=== PATIENT | male | born 1960 ===

== ENCOUNTER 2018-02-11 13:54 | Inpatient (IN) | payer OTHER ==
[~2018-02-11] VITALS: Ht 182.9 cm; Wt 115.2 kg
[2018-02-11] MEDS ORDERED: Z GUARD REMEDY PASTE 57 GM TUBE TOP PRN (14:30)
[2018-02-11] MEDS ORDERED: SIMV10TA6 PO (14:34)
[2018-02-11] MEDS ORDERED: OXYC20OR PO (14:34)
[2018-02-11] MEDS ORDERED: METF-495 PO (14:34)
[2018-02-11] MEDS ORDERED: FAMO20TA8 PO (14:34)
[2018-02-11] MEDS ORDERED: DOCU-141 PO (14:34)
[2018-02-11] MEDS ORDERED: SITA100T PO (14:34)
[2018-02-11] MEDS ORDERED: BISA10SU8 RC (14:34)
[2018-02-11] MEDS ORDERED: OXYC-133 PO (14:34)
[2018-02-11] MEDS ORDERED: ASPI-612 PO (14:34)
[2018-02-11] MEDS ORDERED: PIOG45TA5 PO (14:34)
[2018-02-11] MEDS ORDERED: LISI10TA5 PO (14:34)
--- NOTE | 2018-02-11 14:38 | NUR ---
Admitted this 57 y/o male from [facility] with diagnosis of S/P Right Knee Arthroplasty by Dr. Smith on 02/09/18 transferred via gurney by [employer] transportation. Patient is alert, oriented x 4, not in any form of acute distress. Routine admission care provided. Oriented to room, staff and use of devices. Call light placed within reach. Dr. Mena made aware of admission. Dr. Manuel Lux notified of admission and need for medication reconciliation and said OK. Addendum: 02/11/18 at 1952 by CHELA VILLARREAL RN RN correction: diagnosis of Left Knee Arthroplasty
[2018-02-11] MEDS ORDERED: OXYCODONE/APAP 5-325 MG TABLET PO PRN (16:15)
[2018-02-11] MEDS ORDERED: BISACODYL 10 MG SUPP.RECT RC PRN (16:15)
[2018-02-11] MEDS ORDERED: OXYCODONE HCL 20 MG/1 ML LIQUID UDC PO PRN (16:15)
[2018-02-11] MEDS ORDERED: OXYCODONE HCL 5 MG TABLET PO PRN (16:45)
[2018-02-11] MEDS: DOCUSATE SODIUM 100 MG CAPSULE PO SCH (17:27)
[2018-02-11] MEDS: ASPIRIN 325 MG TABLET PO SCH (17:27)
[2018-02-11] MEDS: METFORMIN XR 500 MG TAB.SR.24H PO SCH (17:28)
--- NOTE | 2018-02-11 18:50 | NUR ---
Notified Dr. Mena regarding patient's pain medication not working and stated he will review his medications and make some changes.
--- NOTE | 2018-02-11 19:25 | NUR ---
Pt awake and laying in Semi paredes's position in bed . A & O x 4 , cooperative . Pt is c/o pain in left knee , a 4 / 10 , aching . Pt given pain medication . Pt has a blood glucose of 175 , was given 3 units of Humulin . Pt has a Funes cath. with urine output , yellow and clear . Bed in low position , bed alarm on , side rails up x 2 , wheels locked , and call light near pt in bed . VSS
[2018-02-11 19:28] VITALS: BP 118/73
[2018-02-11] MEDS ORDERED: DEXTROSE 50% 50 ML DISP.SYRIN IV PRN (19:45)
[2018-02-11 20:00] VITALS: BP 123/80
[2018-02-11] MEDS: SIMVASTATIN 10 MG TABLET PO SCH (21:04)
[2018-02-11] MEDS: OXYCODONE HCL 20 MG TAB.SR.12H PO SCH (21:04)
[2018-02-11] MEDS: BLOOD SUGAR DIAGNOSTIC 1 EACH STRIP VI SCH (21:12)
[2018-02-11] MEDS: INSULIN REGULAR, HUMAN 300 UNIT/3 ML VIAL SQ PRN (21:16)
[2018-02-11] MEDS: OXYCODONE/APAP 5-325 MG TABLET PO PRN (22:13)
[2018-02-12] MEDS: OXYCODONE/APAP 5-325 MG TABLET PO PRN ×4 (04:18→22:34)
[2018-02-12 05:08] VITALS: BP 141/77
[2018-02-12] MEDS: OXYCODONE HCL 20 MG TAB.SR.12H PO SCH ×3 (05:33→23:50)
[2018-02-12] MEDS: BLOOD SUGAR DIAGNOSTIC 1 EACH STRIP VI SCH ×4 (06:37→21:00)
--- NOTE | 2018-02-12 06:52 | NUR ---
Pt slept some during the shift . Pt stated that the pain medications were not working . In the morning , pt had a pain of 6 out of 10 , in left knee , and had 2 tabs of Percoset and his scheduled Q 8 hours Oxycontin 20 mg and his pain decreased to 5 / 10 . Removed pt's Funes catheter . VSS , pt A & O x4 , cooperative .
[2018-02-12 07:02] LABS: BASOPHILS % (AUTO) 0.7 % (0.0-2.0); EOSINOPHILS # (AUTO) 0.3 K/uL (0.0-0.7); EOSINOPHILS % (AUTO) 5.2 % (0.0-7.0); HEMATOCRIT 35.2 % (36.7-47.1); LYMPHOCYTES # (AUTO) 0.7 K/uL (20.0-40.0); LYMPHOCYTES % (AUTO) 12.2 % (20.5-51.5); MEAN CORPUSCULAR HEMOGLOBIN 29.4 uug (23.8-33.4); MEAN CORPUSCULAR HGB CONC 34 g/dL (32.5-36.3); MEAN CORPUSCULAR VOLUME 86.4 fL (73.0-96.2); MONOCYTES # (AUTO) 0.7 K/uL (2.0-10.0); MONOCYTES % (AUTO) 12.1 % (0.0-11.0); NEUTROPHILS # (AUTO) 3.9 K/uL (1.8-8.9); NEUTROPHILS % (AUTO) 69.8 % (38.5-71.5); PLATELET COUNT (AUTO) 207 K/uL (152-348); RED BLOOD CELL COUNT(AUTO) 4.08 MIL/uL (4.06-5.63); WHITE BLOOD COUNT (AUTO) 5.7 K/uL (3.6-10.2)
[2018-02-12 07:16] LABS: CREATININE 0.9 mg/dL (0.6-1.3); MAGNESIUM 1.9 mg/dL (1.8-2.4); PHOSPHOROUS 2.3 mg/dL (2.5-4.9); POTASSIUM 4.2 mmol/L (3.5-5.1)
[2018-02-12] MEDS ORDERED: SITAGLIPTIN PHOSPHATE 50 MG TABLET PO SCH (09:00)
[2018-02-12] MEDS: LISINOPRIL 10 MG TABLET PO SCH (09:00)
[2018-02-12] MEDS: DOCUSATE SODIUM 100 MG CAPSULE PO SCH ×2 (09:37→17:24)
[2018-02-12] MEDS: LINAGLIPTIN 5 MG TABLET PO SCH (09:38)
[2018-02-12] MEDS: FAMOTIDINE 20 MG TABLET PO SCH (09:38)
[2018-02-12] MEDS: ASPIRIN 325 MG TABLET PO SCH ×2 (09:38→16:31)
[2018-02-12] MEDS: PIOGLITAZONE HCL 15 MG TABLET PO SCH (09:38)
[2018-02-12] MEDS: INSULIN REGULAR, HUMAN 300 UNIT/3 ML VIAL SQ PRN ×3 (09:42→21:02)
[2018-02-12 15:27] VITALS: BP 119/83
[2018-02-12] MEDS ORDERED: NEUTRA PHOS PACKET PO ONE (15:30)
[2018-02-12] MEDS: METFORMIN XR 500 MG TAB.SR.24H PO SCH (17:24)
--- NOTE | 2018-02-12 19:45 | NUR ---
Pt is awake and laying in low fowlers position in bed . Pt was upset with new pain schedule . I called Dr Mena to see if pt could get pain medication right away and pt received 20 mg Oxycontin once and then was due to start it Q 6 hrs at midnight . VSS
[2018-02-12 20:24] VITALS: BP 144/76
[2018-02-12] MEDS: SIMVASTATIN 10 MG TABLET PO SCH (20:56)
[2018-02-12] MEDS ORDERED: OXYCODONE HCL 5 MG TABLET PO ONE (21:00)
[2018-02-13 05:00] VITALS: BP 151/86
--- NOTE | 2018-02-13 05:38 | NUR ---
Pt slept well throughout the shift . The new pain schedule seemed to help the pt rest and be more comfortable . No signs of distress . VSS .
[2018-02-13] MEDS: OXYCODONE HCL 20 MG TAB.SR.12H PO SCH ×3 (06:06→17:20)
[2018-02-13] MEDS: BLOOD SUGAR DIAGNOSTIC 1 EACH STRIP VI SCH ×4 (06:39→22:02)
[2018-02-13] MEDS: OXYCODONE/APAP 5-325 MG TABLET PO PRN ×3 (06:54→20:46)
[2018-02-13] MEDS: INSULIN REGULAR, HUMAN 300 UNIT/3 ML VIAL SQ PRN ×3 (08:40→17:22)
[2018-02-13] MEDS: PIOGLITAZONE HCL 15 MG TABLET PO SCH (08:43)
[2018-02-13] MEDS: LINAGLIPTIN 5 MG TABLET PO SCH (08:43)
[2018-02-13] MEDS: ASPIRIN 325 MG TABLET PO SCH ×2 (08:43→17:20)
[2018-02-13] MEDS: DOCUSATE SODIUM 100 MG CAPSULE PO SCH ×2 (08:43→17:49)
[2018-02-13] MEDS: FAMOTIDINE 20 MG TABLET PO SCH (08:43)
[2018-02-13 08:55] VITALS: BP 136/76
[2018-02-13] MEDS: LISINOPRIL 10 MG TABLET PO SCH (08:55)
--- NOTE | 2018-02-13 12:45 | NUR ---
Received patient, asleep in bed. Non-labored breathing.
--- NOTE | 2018-02-13 13:43 | NUR ---
INTERDISCIPLINARY TEAM CONFERENCE
--- NOTE | 2018-02-13 16:00 | NUR ---
Dressing changed done. Left knee surgical wound still with nic, no discharges or redness noted.
[2018-02-13 16:09] VITALS: BP 144/84
[2018-02-13] MEDS: METFORMIN XR 500 MG TAB.SR.24H PO SCH (17:20)
[2018-02-13 20:35] VITALS: BP 138/81
[2018-02-13] MEDS: SIMVASTATIN 10 MG TABLET PO SCH (20:40)
--- NOTE | 2018-02-13 22:02 | NUR ---
Pt. accucheck result is = 146 , pt. refused his s/s coverage for Regular insulin. No coverage given to the pt. kevin.
[2018-02-14] MEDS: OXYCODONE HCL 20 MG TAB.SR.12H PO SCH ×3 (00:23→12:14)
--- NOTE | 2018-02-14 01:15 | NUR ---
Pt. verbalized to the Primary RN caregivers that pain is not being controlled by PO. meds pain reliever. Pt. also verbalized that he already talked to the Doctor about his need for IV pain reliever but its only po pain reliever thats ordered for him in the Rehab. floor. Pt. verbalized that he already talked about this problem from the other shifts. Pt. agreed that I will call the Doctor in the morning since its not the right time to wake the Doctor. Pt. just received his pain reliever Oxycontin-Oxycodone 20 mg. an 30-40 minutes ago. Pt. is to receive another pain reliever which is the Percocet in 1 1/2 hour from now. Pt. just verbalized that his PO. pain reliever is not really helping him fully sleep and be comfortable. Pt. verbalized that he doesn't want me to call the Doctor right now and pt. decided with the Nurse to call the Doctor tomorrow with regards to his pain and comfort or pain control management issue. Primary RN Hernandez Rubio addressed it to the athletic equipment manager and Nursing Folding Rules Printing Machine Operator. athletic equipment manager and Nursing Folding Rules Printing Machine Operator made aware. Nursing Folding Rules Printing Machine Operator instructed/informed Primary Nurse to call the Doctor in the morning around [phone] Am.
[2018-02-14] MEDS: OXYCODONE/APAP 5-325 MG TABLET PO PRN ×2 (02:39→09:43)
--- NOTE | 2018-02-14 04:30 | NUR ---
Pt. verbalized that his Right lower extremity is feeling numb and in pain from the prolong position. Compression stocking was removed because the Right leg- Right Lower extremity has red skin color and pt. feels that the compression stocking feels so tight to his Right leg- Right Lower extremity. Compression stocking was removed and the whole right leg was massage for a few minutes. The pt. feels relieved and help him to reduce his feeling of tightness and numbness there. Tightness and numbness feeling decreased now and pt. feels comfortable. Pt. made aware that Nurses will call the Doctor in charge for this matter in the morning. Pt. denies pain @ the Left Knee -LLE @ this time because he just received Percocet -Oxycodone @ around 0238 Am when it due @ that time. Pt. did not talk of pain @ the Left Knee -Knee replacement site. Pt. still desire to have IV pain reliever be ordered for him for his Left Knee replacement when it hurts or when its painful again. Pt. doesnt like PO> pain relievers only. He wants to have breakthrough IV pain reliever meds. for his Left Knee pain as RPN too. Pt. informend that the Doctor will be called early Am today. Pt. verbalized understanding.
[2018-02-14 05:00] VITALS: BP 144/78
--- NOTE | 2018-02-14 05:36 | NUR ---
SPOKE TO MARLY LEWIS NP AND NOTIFY THAT PATIENT PAIN ARE NOT RELIEVE WITH CURRENT PAIN MEDS, WITH NO NEW ORDER AT THIS TIME. WILL ENDORSED IN AM.
[2018-02-14] MEDS: BLOOD SUGAR DIAGNOSTIC 1 EACH STRIP VI SCH ×4 (07:17→20:18)
[2018-02-14 08:00] VITALS: BP 149/74
--- NOTE | 2018-02-14 08:00 | NUR ---
RECEIVED A 57 Y/O MALE PT A CASE OF POST LT KNEE REPLACEMENT, PT IS ALERT OX4, BREATHING SPONTANEOUSLY. HAS A LT KNEE INCISION , URINATING USING THE URINAL / OOB TO RESTROOM. ALL SAFETY MEASURES TAKEN , PATIENT HAS ON THE CLOCK PAIN MEDICATION TO CONTINUE TO MONITOR. -
[2018-02-14] MEDS: DOCUSATE SODIUM 100 MG CAPSULE PO SCH ×2 (08:43→17:10)
[2018-02-14] MEDS: LISINOPRIL 10 MG TABLET PO SCH (08:43)
[2018-02-14] MEDS: ASPIRIN 325 MG TABLET PO SCH ×2 (08:43→17:10)
[2018-02-14] MEDS: LINAGLIPTIN 5 MG TABLET PO SCH (08:43)
[2018-02-14] MEDS: FAMOTIDINE 20 MG TABLET PO SCH (08:43)
[2018-02-14] MEDS: PIOGLITAZONE HCL 15 MG TABLET PO SCH (09:42)
[2018-02-14] MEDS: INSULIN REGULAR, HUMAN 300 UNIT/3 ML VIAL SQ PRN ×3 (12:01→20:52)
[2018-02-14] MEDS ORDERED: OXYCODONE HCL 20 MG TAB.SR.12H PO SCH (14:00)
[2018-02-14] MEDS: OXYCODONE HCL 40 MG TAB.SR.12H PO SCH ×2 (14:33→22:30)
[2018-02-14 15:53] VITALS: BP 130/77
[2018-02-14] MEDS: HYDROMORPHONE HCL 2 MG TABLET PO PRN ×2 (17:30→20:38)
[2018-02-14] MEDS: METFORMIN XR 500 MG TAB.SR.24H PO SCH (18:24)
--- NOTE | 2018-02-14 19:30 | NUR ---
PT ALERT AND ORIENTED IN BED. NO DISTRESS NOTED. COMPLIANT WITH NURSING CARE. SAFETY MAINTAINED. CALL LIGHT WITHIN REACH. BED ALARM ON.
[2018-02-14 19:41] VITALS: BP 121/74
[2018-02-14] MEDS: SIMVASTATIN 10 MG TABLET PO SCH (20:16)
[2018-02-15 05:30] VITALS: BP 136/80
[2018-02-15] MEDS: OXYCODONE HCL 40 MG TAB.SR.12H PO SCH ×3 (06:14→22:11)
[2018-02-15] MEDS: BLOOD SUGAR DIAGNOSTIC 1 EACH STRIP VI SCH ×4 (06:40→21:00)
--- NOTE | 2018-02-15 06:41 | NUR ---
PT ALERT AND ORIENTED IN BED. NO DISTRESS NOTED. BS 137. PAIN MEDICATION THROUGHOUT THE NIGHT NEEDED FOR PAIN. CLEAN AND DRY. SAFETY MAINTAINED. CALL LIGHT WITHIN REACH. BED ALARM ON.
[2018-02-15 08:00] VITALS: BP 142/86
[2018-02-15] MEDS: HYDROMORPHONE HCL 2 MG TABLET PO PRN ×4 (08:11→22:04)
[2018-02-15] MEDS: LINAGLIPTIN 5 MG TABLET PO SCH (08:13)
[2018-02-15] MEDS: ASPIRIN 325 MG TABLET PO SCH ×2 (08:13→17:09)
[2018-02-15] MEDS: PIOGLITAZONE HCL 15 MG TABLET PO SCH (08:13)
[2018-02-15] MEDS: FAMOTIDINE 20 MG TABLET PO SCH (08:13)
[2018-02-15] MEDS: LISINOPRIL 10 MG TABLET PO SCH (08:14)
[2018-02-15] MEDS: DOCUSATE SODIUM 100 MG CAPSULE PO SCH ×2 (08:14→17:09)
[2018-02-15] MEDS: INSULIN REGULAR, HUMAN 300 UNIT/3 ML VIAL SQ PRN ×3 (08:21→17:11)
--- NOTE | 2018-02-15 14:00 | NUR ---
ENDORSED PATIENT TO CHARGE NURSE
--- NOTE | 2018-02-15 14:30 | NUR ---
Patient out of bed ambulating with physical therapist, no complain at this time, no distress noted.
[2018-02-15] MEDS ORDERED: BISACODYL 10 MG SUPP.RECT RC PRN (16:00)
--- NOTE | 2018-02-15 16:00 | NUR ---
Received an order from Alexandre Jules NP to change Bisacodyl order to 10 mg suppository per rectum PRN daily.
[2018-02-15 16:05] VITALS: BP 140/75
[2018-02-15] MEDS: METFORMIN XR 500 MG TAB.SR.24H PO SCH (17:10)
--- NOTE | 2018-02-15 20:15 | NUR ---
A/o x4 Lying in bed watching Tv right knee dharmesh wrapped and nic intact. Siderails up Call light within reach.
[2018-02-15 20:47] VITALS: BP 155/84
[2018-02-15] MEDS: SIMVASTATIN 10 MG TABLET PO SCH (21:55)
--- NOTE | 2018-02-15 22:00 | NUR ---
C/o 9-10 Right Knee pain given Dil 8 mg po. Blood Sugar 103 no coverage given. Siderails up Call light within reach.
--- NOTE | 2018-02-16 02:00 | NUR ---
C/o 9-10 L Knee pain given Dil 8 mg po . Siderails up call light within reach.
[2018-02-16] MEDS: HYDROMORPHONE HCL 2 MG TABLET PO PRN ×5 (02:06→21:59)
[2018-02-16 05:00] VITALS: BP 136/80
[2018-02-16] MEDS: OXYCODONE HCL 40 MG TAB.SR.12H PO SCH ×3 (06:30→21:04)
--- NOTE | 2018-02-16 07:07 | NUR ---
Lying in bed watching tv given am pain meds and blood sugar 127 no coverage given siderails up call light within reach.
[2018-02-16] MEDS: DOCUSATE SODIUM 100 MG CAPSULE PO SCH ×2 (08:16→17:11)
[2018-02-16] MEDS: ASPIRIN 325 MG TABLET PO SCH ×2 (08:16→17:11)
[2018-02-16] MEDS: FAMOTIDINE 20 MG TABLET PO SCH (08:16)
[2018-02-16] MEDS: LINAGLIPTIN 5 MG TABLET PO SCH (08:16)
[2018-02-16] MEDS: PIOGLITAZONE HCL 15 MG TABLET PO SCH (08:17)
[2018-02-16] MEDS: LISINOPRIL 10 MG TABLET PO SCH (08:18)
[2018-02-16] MEDS: BLOOD SUGAR DIAGNOSTIC 1 EACH STRIP VI SCH ×3 (11:40→21:08)
[2018-02-16] MEDS: METFORMIN XR 500 MG TAB.SR.24H PO SCH (17:14)
[2018-02-16] MEDS: SIMVASTATIN 10 MG TABLET PO SCH (21:04)
[2018-02-16] MEDS: INSULIN REGULAR, HUMAN 300 UNIT/3 ML VIAL SQ PRN (21:12)
[2018-02-16 22:02] VITALS: BP 126/68
[2018-02-17] MEDS: HYDROMORPHONE HCL 2 MG TABLET PO PRN ×5 (03:10→21:09)
[2018-02-17 04:21] VITALS: BP 141/80
[2018-02-17] MEDS: OXYCODONE HCL 40 MG TAB.SR.12H PO SCH ×3 (05:45→22:51)
[2018-02-17] MEDS: BLOOD SUGAR DIAGNOSTIC 1 EACH STRIP VI SCH ×4 (06:42→21:12)
--- NOTE | 2018-02-17 06:51 | NUR ---
PT IN BED RESTING, IN NO ACUTE SIGNS OF DISTRESS. ON PAIN MANAGEMENT FOR LEFT KNEE PAIN. BLOOD GLUCOSE CHECKED IN AM, 161. WILL ENDORSE TO AM NURSE. SAFETY MEASURES RENDERED.
[2018-02-17] MEDS: LINAGLIPTIN 5 MG TABLET PO SCH (08:14)
[2018-02-17] MEDS: ASPIRIN 325 MG TABLET PO SCH ×2 (08:14→17:07)
[2018-02-17] MEDS: PIOGLITAZONE HCL 15 MG TABLET PO SCH (08:15)
[2018-02-17] MEDS: FAMOTIDINE 20 MG TABLET PO SCH (08:15)
[2018-02-17] MEDS: LISINOPRIL 10 MG TABLET PO SCH (08:15)
[2018-02-17] MEDS: DOCUSATE SODIUM 100 MG CAPSULE PO SCH ×2 (08:15→17:07)
[2018-02-17 15:53] VITALS: BP 124/63
[2018-02-17] MEDS: METFORMIN XR 500 MG TAB.SR.24H PO SCH (17:08)
--- NOTE | 2018-02-17 17:31 | NUR ---
REFUSED INSULIN SLIDING SCALE COVERAGE FOR TODAY. TOOK HIS ORAL HYPOGLYCEMICS ORDERED. NO SIGN OF HYPER/HYPOGLYCEMIA NOTED
--- NOTE | 2018-02-17 19:50 | NUR ---
Received pt in bed, AAO x 4 watching television with family at bedside. No acute distress noted. Verbally responsive and able to make needs known. Denies pain or discomfort at this time. All safety measures and fall precautions maintained. Call light and all personal belongings within reach. Will continue to monitor.
[2018-02-17 20:23] VITALS: BP 111/58
--- NOTE | 2018-02-17 21:00 | NUR ---
Blood sugar noted to be 165. Pt refusing sliding scale insulin. Offered x 3. Explained risks and benefits. Pt verbalized understanding. Safety maintained. Call light within reach. Will continue to monitor.
[2018-02-17] MEDS: SIMVASTATIN 10 MG TABLET PO SCH (21:09)
[2018-02-18] MEDS: HYDROMORPHONE HCL 2 MG TABLET PO PRN ×5 (03:03→20:39)
[2018-02-18 05:25] VITALS: BP 121/68
[2018-02-18] MEDS: OXYCODONE HCL 40 MG TAB.SR.12H PO SCH ×3 (05:54→22:17)
[2018-02-18] MEDS: BLOOD SUGAR DIAGNOSTIC 1 EACH STRIP VI SCH ×4 (06:30→20:43)
[2018-02-18 08:00] VITALS: BP 139/84
--- NOTE | 2018-02-18 08:00 | NUR ---
Received patient awake, alert x4. With pain over left knee rated as 9/10. Not in any form of distress. Refused insulin sliding scale at this time. Discussed risks and benefits but patient still refused.
[2018-02-18] MEDS: LISINOPRIL 10 MG TABLET PO SCH (08:42)
[2018-02-18] MEDS: LINAGLIPTIN 5 MG TABLET PO SCH (08:42)
[2018-02-18] MEDS: DOCUSATE SODIUM 100 MG CAPSULE PO SCH ×2 (08:42→17:12)
[2018-02-18] MEDS: FAMOTIDINE 20 MG TABLET PO SCH (08:42)
[2018-02-18] MEDS: ASPIRIN 325 MG TABLET PO SCH ×2 (08:42→17:12)
[2018-02-18] MEDS: PIOGLITAZONE HCL 15 MG TABLET PO SCH (08:44)
[2018-02-18] MEDS: INSULIN REGULAR, HUMAN 300 UNIT/3 ML VIAL SQ PRN ×3 (11:59→20:46)
[2018-02-18 15:50] VITALS: BP 125/80
[2018-02-18] MEDS: METFORMIN XR 500 MG TAB.SR.24H PO SCH (17:12)
--- NOTE | 2018-02-18 17:35 | NUR ---
Tolerated therapy well. Pain medications given as ordered. On CMP tolerating well up to 75 degrees. Showered during therapy. Dressing changed per soiling. Wound healing well, still with nic, no discharges noted.
--- NOTE | 2018-02-18 19:30 | NUR ---
Received patient awake, watching TV at this time. Presented a tolerable pain on left knee. Patient aware when he's due for the next pain meds. Encouraged deep breathing exercises and relaxation technique to relieve pain/discomforts. Will monitor.
[2018-02-18 20:38] VITALS: BP 121/65
[2018-02-18] MEDS: SIMVASTATIN 10 MG TABLET PO SCH (20:38)
--- NOTE | 2018-02-18 22:19 | NUR ---
Warm compress provided for complaint of right shoulder pain Will monitor.
[2018-02-19] MEDS: HYDROMORPHONE HCL 2 MG TABLET PO PRN ×4 (03:02→20:06)
[2018-02-19 05:00] VITALS: BP 145/69
[2018-02-19] MEDS: OXYCODONE HCL 40 MG TAB.SR.12H PO SCH ×3 (06:00→21:21)
[2018-02-19] MEDS: BLOOD SUGAR DIAGNOSTIC 1 EACH STRIP VI SCH ×4 (06:03→20:09)
--- NOTE | 2018-02-19 07:31 | NUR ---
Shift End Report: VS stable. Medicated for pain with relief. No fall/injury. All needs attended and met. Continue current plan of care.
[2018-02-19 08:00] VITALS: BP 145/81
[2018-02-19] MEDS: PIOGLITAZONE HCL 15 MG TABLET PO SCH (08:54)
[2018-02-19] MEDS: ASPIRIN 325 MG TABLET PO SCH ×2 (08:54→17:20)
[2018-02-19] MEDS: DOCUSATE SODIUM 100 MG CAPSULE PO SCH ×2 (08:54→17:20)
[2018-02-19] MEDS: FAMOTIDINE 20 MG TABLET PO SCH (08:54)
[2018-02-19] MEDS: LISINOPRIL 10 MG TABLET PO SCH (08:55)
[2018-02-19] MEDS: LINAGLIPTIN 5 MG TABLET PO SCH (08:55)
[2018-02-19] MEDS: INSULIN REGULAR, HUMAN 300 UNIT/3 ML VIAL SQ PRN ×3 (11:53→20:12)
[2018-02-19 16:00] VITALS: BP 141/74
[2018-02-19] MEDS ORDERED: BISACODYL 5 MG TABLET.DR PO ONE (17:00)
[2018-02-19] MEDS: METFORMIN XR 500 MG TAB.SR.24H PO SCH (17:20)
[2018-02-19] MEDS ORDERED: BISACODYL 5 MG TABLET.DR PO PRN (17:30)
--- NOTE | 2018-02-19 18:09 | NUR ---
pt stable throughout the day. pt given meds for pain. pt showed dissatisfaction for not receiving pain meds on time. pt had no bm. possible constipation. no new changes. will endorse to night shfit nurse.
--- NOTE | 2018-02-19 19:15 | NUR ---
Awake during initial rounds. Pt verbalizing dissatisfaction about his delayed pain meds as needed. He claimed that he is in a lot of pain before but now its in the scale of 7/10. Assurance given to patient that he will get his pain medication on time and as ordered. Continue care as planned.
[2018-02-19 19:55] VITALS: BP 113/63
[2018-02-19] MEDS: SIMVASTATIN 10 MG TABLET PO SCH (20:06)
--- NOTE | 2018-02-19 20:20 | NUR ---
Ingrid Finn at bedside at this time with new orders noted and carried out.
[2018-02-19] MEDS ORDERED: MAGNESIUM CITRATE 296 ML BOTTLE PO ONE (20:45)
[2018-02-19] MEDS: GABAPENTIN 300 MG CAPSULE PO SCH (20:55)
--- NOTE | 2018-02-19 21:31 | NUR ---
Magnesium Citrate given as ordered for complaint of constipation. Will monitor.
--- NOTE | 2018-02-19 23:11 | NUR ---
Patient reported that he woke up with right leg numbness , Assessed capillary refill ok, good pulses, warm to touch. Able to flex toes/foot without difficulty. Will continue to monitor. Pt started on Neurontin 300 mg daily today as ordered.
[2018-02-20] MEDS: OXYCODONE HCL 40 MG TAB.SR.12H PO SCH ×3 (06:11→21:55)
[2018-02-20] MEDS: BLOOD SUGAR DIAGNOSTIC 1 EACH STRIP VI SCH ×4 (06:12→21:18)
[2018-02-20 06:13] VITALS: BP 135/80
--- NOTE | 2018-02-20 07:08 | NUR ---
Shift End Report: Vs stable. Medicated for pain as needed and ordered with help. No further complaint presented. Slept good.No significant event reported all night. Continue current plan of care.
[2018-02-20 08:00] VITALS: BP 129/77
[2018-02-20] MEDS: LINAGLIPTIN 5 MG TABLET PO SCH (08:41)
[2018-02-20] MEDS: FAMOTIDINE 20 MG TABLET PO SCH (08:42)
[2018-02-20] MEDS: DOCUSATE SODIUM 100 MG CAPSULE PO SCH ×2 (08:42→17:20)
[2018-02-20] MEDS: PIOGLITAZONE HCL 15 MG TABLET PO SCH (08:42)
[2018-02-20] MEDS: ASPIRIN 325 MG TABLET PO SCH ×2 (08:42→17:20)
[2018-02-20] MEDS: LISINOPRIL 10 MG TABLET PO SCH (08:42)
--- NOTE | 2018-02-20 09:00 | NUR ---
pt complained of pain on left let. pt given 15mg of morhine as needed. will continue to monitor.
[2018-02-20] MEDS: INSULIN REGULAR, HUMAN 300 UNIT/3 ML VIAL SQ PRN ×3 (12:31→21:23)
--- NOTE | 2018-02-20 14:24 | NUR ---
INTERDISCIPLINARY TEAM CONFERENCE
[2018-02-20] MEDS: MORPHINE SULFATE IR 30 MG TABLET PO PRN ×2 (15:02→21:09)
[2018-02-20 15:53] VITALS: BP 124/69
[2018-02-20] MEDS: METFORMIN XR 500 MG TAB.SR.24H PO SCH (17:20)
[2018-02-20] MEDS: GABAPENTIN 300 MG CAPSULE PO SCH (17:20)
--- NOTE | 2018-02-20 18:35 | NUR ---
pt continues to be stable throughout the day. no signs of infection on site. pt continues to be in pain. pain meds given as scheduled and as needed. md aware of patients pain. no new orders. pt states that he had bowel movement today. pt given dulcolax tabs prn in am to prevent complications of taking narcotics such as constipation. applied cpm machine. placed hot packs as requested. fall precautions implemented. will endorse to hourly shift manager nurse.
--- NOTE | 2018-02-20 20:30 | NUR ---
Pt is awake and laying in Semi Nathan's position in bed . Pt has c/o pain in left knee , states he will wait for his next scheduled medication . Pt in no apparent distress . Pt had a blood sugar of 135 , given 2 units of Humulin . VSS
[2018-02-20 20:36] VITALS: BP 116/66
[2018-02-20] MEDS: SIMVASTATIN 10 MG TABLET PO SCH (21:08)
[2018-02-21 06:02] VITALS: BP 114/72
[2018-02-21] MEDS: OXYCODONE HCL 40 MG TAB.SR.12H PO SCH ×3 (06:11→21:02)
[2018-02-21] MEDS: BLOOD SUGAR DIAGNOSTIC 1 EACH STRIP VI SCH ×4 (06:41→21:08)
[2018-02-21] MEDS: PIOGLITAZONE HCL 15 MG TABLET PO SCH (08:08)
[2018-02-21] MEDS: LINAGLIPTIN 5 MG TABLET PO SCH (08:08)
[2018-02-21] MEDS: DOCUSATE SODIUM 100 MG CAPSULE PO SCH ×2 (08:09→16:47)
[2018-02-21] MEDS: ASPIRIN 325 MG TABLET PO SCH ×2 (08:09→16:47)
[2018-02-21] MEDS: FAMOTIDINE 20 MG TABLET PO SCH (08:09)
[2018-02-21] MEDS: LISINOPRIL 10 MG TABLET PO SCH (08:09)
[2018-02-21] MEDS: MORPHINE SULFATE IR 30 MG TABLET PO PRN ×3 (08:09→22:53)
--- NOTE | 2018-02-21 09:22 | NUR ---
Received patient awake, alert and orientedx4. Continue on pain management. Complaint of left knee pain at 8am. morphine 15mg every 6 hours PRN given. will continue monitor
[2018-02-21 09:48] VITALS: BP 126/80
[2018-02-21] MEDS: INSULIN REGULAR, HUMAN 300 UNIT/3 ML VIAL SQ PRN ×2 (11:25→17:20)
[2018-02-21 16:40] VITALS: BP 114/64
[2018-02-21] MEDS: METFORMIN XR 500 MG TAB.SR.24H PO SCH (16:47)
[2018-02-21] MEDS: GABAPENTIN 300 MG CAPSULE PO SCH (16:47)
--- NOTE | 2018-02-21 19:54 | NUR ---
Pt is awake and laying in Semi Fowlers position in bed . Pt has no signs of distress and has a c/o pain in left knee . Pt was made aware of his pain regimen and was good with it . Pt is due to receive pain med at 2100 .
[2018-02-21 20:19] VITALS: BP 113/63
[2018-02-21] MEDS: SIMVASTATIN 10 MG TABLET PO SCH (21:02)
[2018-02-22] MEDS: OXYCODONE HCL 40 MG TAB.SR.12H PO SCH ×3 (05:27→21:07)
[2018-02-22 05:40] VITALS: BP 137/66
--- NOTE | 2018-02-22 06:23 | NUR ---
PT slept well during the shift . Pt had no signs of distress . Pt c/o pain left knee this morning . Pt given pain medication , VSS .
[2018-02-22] MEDS: BLOOD SUGAR DIAGNOSTIC 1 EACH STRIP VI SCH ×4 (06:35→21:15)
[2018-02-22] MEDS: FAMOTIDINE 20 MG TABLET PO SCH (08:35)
[2018-02-22] MEDS: DOCUSATE SODIUM 100 MG CAPSULE PO SCH ×2 (08:35→16:05)
[2018-02-22] MEDS: LINAGLIPTIN 5 MG TABLET PO SCH (08:35)
[2018-02-22] MEDS: LISINOPRIL 10 MG TABLET PO SCH (08:35)
[2018-02-22] MEDS: ASPIRIN 325 MG TABLET PO SCH ×2 (08:36→16:05)
[2018-02-22] MEDS: MORPHINE SULFATE IR 30 MG TABLET PO PRN ×3 (08:36→22:07)
[2018-02-22] MEDS: PIOGLITAZONE HCL 15 MG TABLET PO SCH (08:42)
[2018-02-22] MEDS: METFORMIN XR 500 MG TAB.SR.24H PO SCH (16:03)
[2018-02-22 16:05] VITALS: BP 94/61
[2018-02-22] MEDS: GABAPENTIN 300 MG CAPSULE PO SCH (16:05)
--- NOTE | 2018-02-22 16:09 | NUR ---
REFUSED INSULIN SLIDING SCALE COVERAGE FOR TODAY. SAYS HE WILL JUST TAKE HIS PILLS AND MONITOR HIS FOOD
--- NOTE | 2018-02-22 21:00 | NUR ---
Pt awake and laying in Semi fowlers position in bed . Pt has c/o pain , pain medication given . A & O x 4 , VSS .
[2018-02-22] MEDS: SIMVASTATIN 10 MG TABLET PO SCH (21:07)
[2018-02-23] MEDS: MORPHINE SULFATE IR 30 MG TABLET PO PRN ×3 (04:10→19:44)
[2018-02-23] MEDS: OXYCODONE HCL 40 MG TAB.SR.12H PO SCH ×3 (05:17→23:27)
[2018-02-23 05:28] VITALS: BP 119/74
[2018-02-23] MEDS: BLOOD SUGAR DIAGNOSTIC 1 EACH STRIP VI SCH ×4 (06:42→21:34)
[2018-02-23 07:19] LABS: BASOPHILS % (AUTO) 1.2 % (0.0-2.0); EOSINOPHILS # (AUTO) 0.2 K/uL (0.0-0.7); EOSINOPHILS % (AUTO) 3.9 % (0.0-7.0); HEMATOCRIT 31.1 % (36.7-47.1); HEMOGLOBIN 10.7 g/dL (12.5-16.3); LYMPHOCYTES # (AUTO) 0.9 K/uL (20.0-40.0); LYMPHOCYTES % (AUTO) 21.9 % (20.5-51.5); MEAN CORPUSCULAR HEMOGLOBIN 29.9 uug (23.8-33.4); MEAN CORPUSCULAR HGB CONC 35 g/dL (32.5-36.3); MEAN CORPUSCULAR VOLUME 86.5 fL (73.0-96.2); MONOCYTES # (AUTO) 0.5 K/uL (2.0-10.0); MONOCYTES % (AUTO) 11.9 % (0.0-11.0); NEUTROPHILS # (AUTO) 2.5 K/uL (1.8-8.9); NEUTROPHILS % (AUTO) 61.1 % (38.5-71.5)
[2018-02-23 07:26] LABS: PLATELET COUNT (AUTO) 388 K/uL (152-348); WHITE BLOOD COUNT (AUTO) 4.1 K/uL (3.6-10.2)
[2018-02-23 07:36] LABS: BILIRUBIN,TOTAL 0.7 mg/dL (0.2-1.0); MAGNESIUM 2.1 mg/dL (1.8-2.4); PHOSPHOROUS 3.8 mg/dL (2.5-4.9); POTASSIUM 4.7 mmol/L (3.5-5.1); TOTAL PROTEIN, SERUM 6.3 g/dL (6.4-8.2)
[2018-02-23 08:30] VITALS: BP 118/72
[2018-02-23 08:57] LABS: THYROID STIMULATING HORMONE 1.946 mIU/mL (0.358-3.740)
[2018-02-23] MEDS: FAMOTIDINE 20 MG TABLET PO SCH (08:58)
[2018-02-23] MEDS: DOCUSATE SODIUM 100 MG CAPSULE PO SCH ×2 (08:58→17:50)
[2018-02-23] MEDS: ASPIRIN 325 MG TABLET PO SCH ×2 (08:58→17:50)
[2018-02-23] MEDS: LINAGLIPTIN 5 MG TABLET PO SCH (08:58)
[2018-02-23] MEDS: PIOGLITAZONE HCL 15 MG TABLET PO SCH (09:02)
[2018-02-23] MEDS: LISINOPRIL 10 MG TABLET PO SCH (09:13)
[2018-02-23 16:42] VITALS: BP 133/72
[2018-02-23] MEDS: GABAPENTIN 300 MG CAPSULE PO SCH (17:50)
[2018-02-23] MEDS: METFORMIN XR 500 MG TAB.SR.24H PO SCH (17:51)
[2018-02-23 19:30] VITALS: BP 127/50
[2018-02-23] MEDS: SIMVASTATIN 10 MG TABLET PO SCH (21:28)
[2018-02-24 04:40] VITALS: BP 130/53
--- NOTE | 2018-02-24 06:04 | NUR ---
Pt slept well during the shift . No signs of distress and had c/o pain , which pt given pain medication . VSS , A & O x 4 .
[2018-02-24] MEDS: OXYCODONE HCL 40 MG TAB.SR.12H PO SCH ×3 (06:42→22:13)
[2018-02-24] MEDS: BLOOD SUGAR DIAGNOSTIC 1 EACH STRIP VI SCH ×4 (07:04→20:53)
[2018-02-24] MEDS: MORPHINE SULFATE IR 30 MG TABLET PO PRN ×4 (07:09→23:49)
[2018-02-24 08:00] VITALS: BP 115/78
[2018-02-24] MEDS: PIOGLITAZONE HCL 15 MG TABLET PO SCH (08:59)
[2018-02-24] MEDS: FAMOTIDINE 20 MG TABLET PO SCH (09:00)
[2018-02-24] MEDS: LINAGLIPTIN 5 MG TABLET PO SCH (09:00)
[2018-02-24] MEDS: LISINOPRIL 10 MG TABLET PO SCH (09:00)
[2018-02-24] MEDS: DOCUSATE SODIUM 100 MG CAPSULE PO SCH ×2 (09:00→18:06)
[2018-02-24] MEDS: ASPIRIN 325 MG TABLET PO SCH ×2 (09:00→18:06)
--- NOTE | 2018-02-24 09:15 | NUR ---
Received patient, awake, alert x4. With pain over left knee rated as 6/10. Not in any form of distress. Encouraged to call for needs. Call light within reach.
[2018-02-24] MEDS: INSULIN REGULAR, HUMAN 300 UNIT/3 ML VIAL SQ PRN ×2 (11:58→20:59)
[2018-02-24] MEDS: METFORMIN XR 500 MG TAB.SR.24H PO SCH (18:06)
[2018-02-24] MEDS: GABAPENTIN 300 MG CAPSULE PO SCH (18:06)
--- NOTE | 2018-02-24 19:30 | NUR ---
Awake during initial rounds watching TV. Tolerable pain presented on left knee with dressing dry and intact. Warm pack in placed to affected area. Continue care as planned.
[2018-02-24 20:29] VITALS: BP 124/68
[2018-02-24] MEDS: SIMVASTATIN 10 MG TABLET PO SCH (20:51)
[2018-02-25] MEDS: MORPHINE SULFATE IR 30 MG TABLET PO PRN (05:08)
[2018-02-25 05:44] VITALS: BP 136/69
[2018-02-25] MEDS: OXYCODONE HCL 40 MG TAB.SR.12H PO SCH (06:46)
[2018-02-25] MEDS: BLOOD SUGAR DIAGNOSTIC 1 EACH STRIP VI SCH ×2 (06:49→11:30)
--- NOTE | 2018-02-25 06:53 | NUR ---
Shift End Report: Vs stable. Slept in between care. Medicated for pain as needed and ordered with relief. Left knee dressing dry and intact. Still with limited mobility/AROM due to anticipated pain. All needs attended and met. Continue care as planned.
[2018-02-25 07:50] VITALS: BP 116/74
[2018-02-25] MEDS: ASPIRIN 325 MG TABLET PO SCH (08:17)
[2018-02-25 08:18] VITALS: BP 116/74
[2018-02-25] MEDS: LINAGLIPTIN 5 MG TABLET PO SCH (08:18)
[2018-02-25] MEDS: PIOGLITAZONE HCL 15 MG TABLET PO SCH (08:18)
[2018-02-25] MEDS: FAMOTIDINE 20 MG TABLET PO SCH (08:18)
[2018-02-25] MEDS: LISINOPRIL 10 MG TABLET PO SCH (08:18)
[2018-02-25] MEDS: DOCUSATE SODIUM 100 MG CAPSULE PO SCH (08:19)
--- NOTE | 2018-02-25 11:50 | NUR ---
Nurse notes: patient alert and oriented x 4, able to make needs known remained stable throughout the shift. patient was discharged home as ordered in stable condition. no SOB or distress. denies any pain or discomforts. patient refused photos to be taken. Explained to patient and at the bedside the importance but still patient was refusing. Also patient refused to have his blood sugar taken stated " I don't want any of it right now, can we finish this so I can go home?". Health teachings were provided to both patient and , verbalized understanding. Also informed the patient that Dr. Quintero will send the prescription for the pain medication to [facility] electronically. Patient agreed. All belongings complete. no missing items. Patient was accompanied to private transportation. left the unit with no SOB or complaints of any pain or discomforts.
== END 2018-02-25 11:50 | disposition home health service (06) | DRG 560 ==
PROVIDERS: ADMIT Physical Medicine & Rehabilitation Pain Medicine; ATTEND Physical Medicine & Rehabilitation Pain Medicine
DX: Z47.1 Aftercare following joint replacement surgery (principal); D68.59 Other primary thrombophilia; Z96.653 Presence of artificial knee joint, bilateral; Z68.34 Body mass index [BMI] 34.0-34.9, adult; E66.9 Obesity, unspecified; E11.9 Type 2 diabetes mellitus without complications; E78.5 Hyperlipidemia, unspecified; I10 Essential (primary) hypertension; M19.90 Unspecified osteoarthritis, unspecified site; D64.9 Anemia, unspecified; E11.65 Type 2 diabetes mellitus with hyperglycemia; K59.03 Drug induced constipation; T40.2X5A Adverse effect of other opioids, initial encounter; Y92.230 Patient room in hospital as the place of occurrence of the external cause; R20.0 Anesthesia of skin; Z74.09 Other reduced mobility
CPT/HCPCS: 36415; 83550; 83735; 84100; 84443; 85025; 92523; 92526; 92610; 97110; 97112; 97116; 97530; 97535; A4663; J1815